=== PATIENT | female | born 1975 | race African-American/Black ===

== ENCOUNTER 2025-05-21 10:10 | Emergency (ER) | payer OTHER ==
[~2025-05-21] VITALS: Ht 162.6 cm; Wt 68.2 kg
[2025-05-21 10:11] VITALS: TEMP 97.5
[2025-05-21 10:46] LABS: COVID AG,FIA SOURCE NASAL SWAB
[2025-05-21 10:49] LABS: APPEARANCE,URINE CLEAR (CLEAR); GLUCOSE, URINE (UA) NEGATIVE (NEGATIVE); LEUKOCYTE ESTERASE ,URINE NEGATIVE (NEGATIVE); NITRATE,URINE NEGATIVE (NEGATIVE); OCCULT BLOOD,URINE SMALL (NEGATIVE); SPECIFIC GRAVITIY, URINE 1.015 (1.003-1.030)
[2025-05-21 10:56] LABS: SQUAMOUS EPITHELIAL CELL,UR Few /LPF (None Seen)
[2025-05-21 10:58] LABS: PLATELET COUNT (AUTO) 343 K/uL (150-450); RED BLOOD CELL COUNT(AUTO) 4.48 MIL/uL (4.00-5.20); RED CELL DISTRIBUTION WIDTH 14.6 % (11.5-14.5); WHITE BLOOD COUNT (AUTO) 5.4 K/uL (4.5-11.0)
[2025-05-21 11:08] LABS: CALCIUM, TOTAL 9.1 mg/dL (8.8-10.5); CREATININE 0.84 mg/dL (0.60-1.30); GLOMERULAR FILTR. RATE CALC > 60 mL/min (>60); GLUCOSE,RANDOM 132 mg/dL (70-110); SODIUM SERUM 134 mmol/L (136-145); UREA NITROGEN, BLOOD 9 mg/dL (7-18)
[2025-05-21 11:10] LABS: SARS-COV2 (COVID) ANTIGEN,FIA Negative (Negative)
[2025-05-21 11:11] LABS: INFLUENZA TYPE A NEGATIVE FOR TYPE A (NEGATIVE); INFLUENZA TYPE B NEGATIVE FOR TYPE B (NEGATIVE)
[2025-05-21 11:16] LABS: HCG,QUANTITATIVE < 1 mIU/mL (0-6)
[2025-05-21] MEDS: MAG HYDROX/ALUMINUM HYD/SIMETH ES 30 ML SUSPENSION UDCUP PO ONE (12:16)
[2025-05-21] MEDS: FAMOTIDINE 20 MG/2 ML VIAL IVP ONE (12:17)
[2025-05-21] MEDS: ONDANSETRON HCL 4 MG/2 ML VIAL IVP ONE (12:17)
[2025-05-21 12:42] VITALS: BP 143/80; PULSE 62; RESP 20; O2SAT 99
[2025-05-21] MEDS ORDERED: FAMO20 PO (13:35)
[2025-05-21] MEDS ORDERED: CALC500T37 PO (13:38)
== END 2025-05-21 13:52 | disposition home or self-care (01) ==
LOC: EMS 10:10
DX: K27.9 Peptic ulcer, site unspecified, unspecified as acute or chronic, without hemorrhage or perforation (principal); N89.8 Other specified noninflammatory disorders of vagina; Z98.890 Other specified postprocedural states; Z20.822 Contact with and (suspected) exposure to COVID-19
CPT/HCPCS: 99284; 96374; 96375; 87426; 80048; 81001; 83690; 84702; 85025; 87804; 36415; J3490; J2405